=== PATIENT | female | born 1950 | race Caucasian/White ===

== ENCOUNTER 2020-06-30 11:35 | Observation (INO) ==
[2020-06-30] MEDS ORDERED: PROMETHAZINE 25 MG/1 ML VIAL IM STA (12:02)
[2020-06-30] MEDS ORDERED: MORPHINE 4 MG/1 ML VIAL IM STA (12:02)
[2020-06-30] MEDS ORDERED: GLUCAGON 1 MG VIAL IM PRN (15:25)
[2020-06-30] MEDS ORDERED: ONDANSETRON 4 MG/2 ML VIAL IV PRN (15:25)
[2020-06-30] MEDS ORDERED: DOCUSATE SODIUM 100 MG CAPSULE PO PRN (15:25)
[2020-06-30] MEDS ORDERED: DEXTROSE 50% 25 GM/50 ML VIAL IV PRN (15:25)
[2020-06-30] MEDS ORDERED: ACETAMINOPHEN 325 MG TABLET PO PRN (15:25)
[2020-06-30] MEDS ORDERED: hydrALAZINE 20 MG/1 ML VIAL IV PRN (15:25)
[2020-06-30 17:25] LABS: Basophils % 0.3 % (0.0-0.8); Eosinophils # 0.2 10*3/uL (0.0-0.87); Eosinophils % 2.6 % (0.00-10.9); Hematocrit 33.5 VOL% (35.7-47.0); Hemoglobin 10.4 GM/DL (12.0-16.0); Immature Granulocytes % 0.4 %; Immature Granulocytes Absolute 0.03 #; Lymphocytes # 1.8 10*3/uL (1.4-4.0); Lymphocytes % 22.9 % (21.3-54.2); Mean Corpuscular Volume 94.1 FL (87-102); Mean Platelet Volume 10.6 FL (9.6-12.0); Monocytes % 1.8 % (1.7-12.7); Platelet Count 199 T/CUMM (130-400); Red Blood Count 3.56 MC/CUMM (3.8-5.5); Red Cell Distribution Width 13.9 % (9.3-17.3); White Blood Count 7.7 T/CUMM (4-12)
[2020-06-30 17:48] LABS: Calcium 8.8 MG/DL (8.5-10.1); Osmolality,Calculated 285.4 MOS/KG (273-304)
[2020-06-30 17:59] LABS: Risk Ratio 4.25; VLDL CHOLESTEROL 36.2 MG/DL
[2020-06-30] MEDS: INSULIN REGULAR 100 UNIT/ML SUBCUT SCH ×2 (18:58→20:50)
[2020-06-30 19:30] LABS: Apearance,Urine Slightly Hazy (Clear); Bilirubin,Urine Negative (Negative); Blood, Urine Negative (Negative); Glucose,Urine (UA) Negative (Negative); Ketones,Urine Negative (Negative); Mucus,Urine Occasional /LPF (Occasional); Nitrite,Urine Negative (Negative); Protein,Urine Negative; Squamous Epithelial Cell,Urine Occasional /HPF (0-10); Urine Color Straw (Yellow); Urine Specific Gravity 1.008 (1.001-1.035); Urine Urobilinogen < 2.0 EU/DL (0.2-1.0)
[2020-06-30] MEDS: GABAPENTIN 600 MG TABLET PO SCH (20:49)
[2020-06-30] MEDS: MONTELUKAST 10 MG TABLET PO SCH (20:49)
[2020-06-30] MEDS: traMADol 50 MG TABLET PO SCH (20:50)
[2020-06-30] MEDS: ENOXAPARIN 40 MG/0.4 ML SYRINGE SUBCUT SCH (20:50)
[2020-06-30] MEDS: FUROSEMIDE 80 MG TABLET PO SCH (20:50)
[2020-06-30] MEDS: SIMVASTATIN 40 MG TABLET PO SCH (20:50)
[2020-06-30] MEDS: METOPROLOL TARTRATE 50 MG TABLET PO SCH (20:50)
[2020-07-01] MEDS: LEVOTHYROXINE 50 MCG TABLET PO SCH (06:17)
[2020-07-01 06:38] LABS: Basophils % 0.5 % (0.0-0.8); Eosinophils # 0.2 10*3/uL (0.0-0.87); Eosinophils % 3.2 % (0.00-10.9); Hematocrit 32.4 VOL% (35.7-47.0); Hemoglobin 10.2 GM/DL (12.0-16.0); Immature Granulocytes % 0.3 %; Immature Granulocytes Absolute 0.02 #; Lymphocytes # 1.9 10*3/uL (1.4-4.0); Lymphocytes % 31.4 % (21.3-54.2); Mean Corpuscular HGB Conc 31.5 GM/DL (32-36); Mean Corpuscular Volume 95.3 FL (87-102); Mean Platelet Volume 11.7 FL (9.6-12.0); Monocytes % 3.9 % (1.7-12.7); Neutrophils % 60.7 % (38.7-73.9); Platelet Count 153 T/CUMM (130-400); White Blood Count 6.2 T/CUMM (4-12)
[2020-07-01 07:17] LABS: Calcium 8.6 MG/DL (8.5-10.1); Osmolality,Calculated 278.1 MOS/KG (273-304)
[2020-07-01] MEDS ORDERED: SODIUM CHLORIDE 0.9% 1,000 ML IV SCH (09:00)
[2020-07-01] MEDS: traMADol 50 MG TABLET PO SCH ×2 (09:13→21:31)
[2020-07-01] MEDS: PANTOPRAZOLE 40 MG TABLET PO SCH (09:13)
[2020-07-01] MEDS: FOLIC ACID 1 MG TABLET PO SCH (09:13)
[2020-07-01] MEDS: GABAPENTIN 600 MG TABLET PO SCH ×3 (09:13→21:31)
[2020-07-01] MEDS: METOPROLOL TARTRATE 50 MG TABLET PO SCH ×2 (09:13→21:31)
[2020-07-01] MEDS: PARoxetine 20 MG TABLET PO SCH (09:14)
[2020-07-01] MEDS: FUROSEMIDE 80 MG TABLET PO SCH (09:14)
[2020-07-01] MEDS: POTASSIUM CHLORIDE 20 MEQ TABLET PO SCH (09:14)
[2020-07-01] MEDS: INSULIN REGULAR 100 UNIT/ML SUBCUT SCH ×4 (09:17→21:31)
[2020-07-01] MEDS ORDERED: SODIUM CHLORIDE 0.9% 500 ML IV ONE (09:24)
[2020-07-01] MEDS: MULTIVITAMIN (CENTRUM) TABLET PO SCH (15:04)
[2020-07-01] MEDS: BUDESONIDE/FORMOTEROL 80-4.5 INHALER 6.9 GM INH SCH ×2 (15:20→21:31)
[2020-07-01] MEDS: Fluticasone Furoate-Vilanterol [Breo Ellipta] 1 inh INH SCH (15:20)
[2020-07-01] MEDS ORDERED: methylPREDNISolone ACETATE 40 MG/1 ML VIAL INTRAARTIC ONE (17:05)
[2020-07-01] MEDS ORDERED: LIDOCAINE 1% 20 ML VIAL MISC INJ ONE (17:06)
[2020-07-01] MEDS: SIMVASTATIN 40 MG TABLET PO SCH (21:31)
[2020-07-01] MEDS: MONTELUKAST 10 MG TABLET PO SCH (21:31)
[2020-07-01] MEDS: ENOXAPARIN 40 MG/0.4 ML SYRINGE SUBCUT SCH (21:55)
[2020-07-02] MEDS: LEVOTHYROXINE 50 MCG TABLET PO SCH (05:45)
[2020-07-02 06:31] LABS: Calcium 8.2 MG/DL (8.5-10.1); Osmolality,Calculated 291.5 MOS/KG (273-304)
[2020-07-02] MEDS: INSULIN REGULAR 100 UNIT/ML SUBCUT SCH ×2 (08:43→12:40)
[2020-07-02] MEDS: POTASSIUM CHLORIDE 20 MEQ TABLET PO SCH (08:44)
[2020-07-02] MEDS: MULTIVITAMIN (CENTRUM) TABLET PO SCH (08:44)
[2020-07-02] MEDS: traMADol 50 MG TABLET PO SCH (08:44)
[2020-07-02] MEDS: FOLIC ACID 1 MG TABLET PO SCH (08:44)
[2020-07-02] MEDS: PARoxetine 20 MG TABLET PO SCH (08:44)
[2020-07-02] MEDS: GABAPENTIN 600 MG TABLET PO SCH (08:44)
[2020-07-02] MEDS: PANTOPRAZOLE 40 MG TABLET PO SCH (08:44)
[2020-07-02] MEDS: Fluticasone Furoate-Vilanterol [Breo Ellipta] 1 inh INH SCH (08:46)
[2020-07-02] MEDS: BUDESONIDE/FORMOTEROL 80-4.5 INHALER 6.9 GM INH SCH (08:50)
[2020-07-02] MEDS ORDERED: POLYETHYLENE GLYCOL POWDER 17 GM PACK PO SCH (09:00)
[2020-07-02] MEDS ORDERED: methylPREDNISolone SOD SUC 40 MG/1 ML VIAL ONE (10:11)
[2020-07-02 12:08] VITALS: BP 123/54
== END 2020-07-02 13:15 | disposition home or self-care (01) ==
LOC: EDBD → EDUNIT# → N.EDINP 11:35 → N.ED 11:35 → N.4E 18:28
PROVIDERS: ADMIT Internal Medicine; ATTEND Internal Medicine